=== PATIENT | female | born 1960 | race African-American/Black ===

== ENCOUNTER 2016-10-23 23:10 | Emergency (ER) | payer MEDICAID, OTHER ==
[~2016-10-23] VITALS: Ht 167.6 cm; Wt 77.0 kg
[2016-10-23 23:14] VITALS: BP 127/80
== END 2016-10-24 01:14 | disposition left against medical advice (07) ==
LOC: ER 23:10
DX: R10.30 Lower abdominal pain, unspecified (principal); R11.0 Nausea; Z53.21 Procedure and treatment not carried out due to patient leaving prior to being seen by health care provider
CPT/HCPCS: Z7610 ×2